=== PATIENT | female | born 1940 | race American Indian/Alaskan Native ===

== ENCOUNTER 2017-06-10 15:48 | Outpatient (CLI) | payer MEDICAID, MEDICARE ==
--- NOTE | 2017-06-14 09:09 | PET Report ---
PET/CT:06/10/17 15:48:00 CLINICAL: Nasopharyngeal cancer RADIOPHARMACEUTICAL: 13.275mCi F18-FDG. COMPARISON: None. TECHNIQUE- Following intravenous injection of F-18 FDG and an approximately 60 minute uptake period, CT and PET images from the mid skull to the upper thighs were acquired with the patient in the fasted state. No contrast was administered. The CT protocol used for this PET CT study is designed for attenuation correction and anatomic localization of PET abnormalities. This commercial tire service technician CT is not desired to produce and cannot replace, [id number]-[id number]-art diagnostic CT scans with specific imaging protocols for different body parts and indications. Plasma glucose at the time of this test: 157g/dl. The standardized uptake values (SUV) are normalized to patient body weight and indicate the highest activity concentration (SUV max) in a given disease site. FINDINGS: Brain--Physiologic FDG uptake in the visualized regions of the brain. Neck--an FDG avid nasopharyngeal mass measures approximately 5.5 cm transverse dimension by 5.4 cm craniocaudal dimension by 3.9 cm in AP dimension with SUV 21.2. The mass erodes the clivus and has destroyed the body of the sphenoid bone as well as the right lesser sphenoid wing. The right pterygoid processes are eroded and mass extends into the right maxillary sinus. Mass involves the sphenoid sinus and also extends into the right cranial fossa. No jugular chain lymphadenopathy. An FDG avid left parotid mass measures 1.3 x 1.2 cm with SUV 7.9. A left supraclavicular mass measures 2.4 x 1.5 cm with SUV 5.4. The super clavicular mass produces mass effect on the left thyroid lobe. However, the thyroid appears normal. Chest--Physiologic FDG uptake in mediastinal blood pool and myocardium. Lungs--No abnormal uptake. No pulmonary nodule or mass. Pleura/pericardium--No abnormal uptake. Thoracic nodes--No abnormal uptake. Hepatobiliary--No abnormal uptake. Liver background SUV mean, as a reference for comparing FDG studies, is 4.1 . No liver mass. Spleen--No abnormal uptake. Pancreas--No abnormal uptake. Adrenal Glands--No abnormal uptake. Kidneys/Ureters/Bladder--No abnormal uptake. Abdominopelvic Nodes--No abnormal uptake. Bowel/Peritoneum/Mesentery--No abnormal uptake. Pelvic organs--No abnormal uptake. Bones/Soft Tissues--No suspicious bone lesions aside from the lytic destruction of the bones adjacent to the nasopharyngeal mass as described above. Other findings: Status post hysterectomy. IMPRESSION- 1. 5.5 cm FDG avid nasopharyngeal mass producing lytic destruction of the sphenoid bone and clivus with extension into the sphenoid sinus, right maxillary sinus and right cranial fossa.2. 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 3. No evidence of pulmonary metastasis. 4. The abdomen and pelvis are negative.
== END 2017-06-10 15:49 | disposition home or self-care (01) ==
LOC: PET 15:48
DX: C79.89 Secondary malignant neoplasm of other specified sites (principal); C11.9 Malignant neoplasm of nasopharynx, unspecified; Z90.710 Acquired absence of both cervix and uterus
CPT/HCPCS: 78815; A9552

== ENCOUNTER 2017-06-21 08:03 | Outpatient (CLI) | payer MEDICAID, MEDICARE ==
--- NOTE | 2017-06-22 15:15 | Magnetic Resonance Report ---
MRI ORBITS/FACE/NECK WITHOUT AND WITH CONTRAST: 06/21/17 08:22:00 CLINICAL: Nasopharyngeal cancer. TECHNIQUE: Sagittal, coronal and axial T1, axial T2, coronal T2 fat-sat and coronal and axial postcontrast T1 sequences on a 1.5 [place] magnet. 15.0 cc of Multihance was injected intravenously for the contrast exam and consent was obtained prior to the administration of contrast. FINDINGS: The quality of the examination is degraded by patient motion on most of the sequences. An irregular enhancing mass of the nasopharynx measures approximately 7.5 cm craniocaudal dimension 7.4 cm AP dimension of 5.3 cm transverse dimension. The mass fills the nasopharynx and extends into both right and left nasal passages. The mass partially encases and constricts the right internal carotid artery. The optic nerves appear to be intact the optic tracts and the optic chiasm appear to be involved with tumor. The pituitary is small and unremarkable. The mass extends into the sphenoid sinuses and the mass erodes the right pterygoid plates. The nasopharynx and the upper portion of the oropharynx are narrowed by the mass. No lymphadenopathy. Fluid fills the right mastoid air cells. The left mastoid air cells are normal. The cervical spine is normal except for some degenerative change with anterior osteophytes. Right maxillary and right ethmoid sinusitis with mucoperiosteal thickening. The rest of the sinuses are clear. IMPRESSION: A fair quality examination degraded by patient motion. A 7.5 x 7.4 x 5.3 cm nasopharyngeal mass with involvement of the optic tracts, optic chiasm and right internal carotid artery.
== END 2017-06-21 08:04 | disposition home or self-care (01) ==
LOC: MRI 08:03
PROVIDERS: ATTEND Internal Medicine Hematology & Oncology
DX: C11.9 Malignant neoplasm of nasopharynx, unspecified (principal); J32.2 Chronic ethmoidal sinusitis; M47.892 Other spondylosis, cervical region
CPT/HCPCS: 70543; A9577

== ENCOUNTER 2017-06-23 10:08 | Outpatient (CLI) | payer MEDICARE, MEDICAID ==
--- NOTE | 2017-06-23 12:17 | Magnetic Resonance Report ---
MRI BRAIN WITHOUT AND WITH CONTRAST: 06/23/17 10:21:00 CLINICAL: Malignant neoplasm of the nasopharynx. COMPARISON: MRI ORBIT/FACE/NECK 06/21/[address] 06/10/17 TECHNIQUE: Axial diffusion, T1, FLAIR, gradient echo T2*, and coronal and axial T2 and sagittal T1 plus coronal and axial postcontrast T1 sequences on a 1.5 [place] magnet. 15.0 cc of Multihance was injected intravenously for the contrast portion of the exam. Consent was obtained prior to the administration of contrast. FINDINGS: An irregular enhancing mass fills the nasopharynx and extends into the sphenoid sinuses and both left and right nasal passages. It measures approximately 7.5 x 5.3 x 7.4 cm. The mass erodes the right pterygoid plates and extends into the right adjunct psychology instructor space. The right ICA is displaced posteriorly and laterally by the mass and appears to be markedly narrowed. The mass does not involve the optic chiasm or the optic tracts as suggested by a technically less satisfactory comparison MRI of the orbits and face. The mass does appear to produce mass effect on the right temporal lobe. The ventricles and sulci are normal. No brain lesion is identified. No restricted diffusion. No hemorrhage, edema or extra-axial collection. Normal pituitary and optic chiasm. The brainstem and cerebellum are normal. Intact vascular flow voids. The orbits, sinuses and soft tissues are normal. Normal calvarium and skull base. IMPRESSION: 1. No evidence of brain metastasis. 2. A 7.5 cm nasopharyngeal tumor which extends into the right adjunct psychology instructor space and erodes the right pterygoid plates. Suspect involvement of the right trigeminal nerve. 3. 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
== END 2017-06-23 10:09 | disposition home or self-care (01) ==
LOC: MRI 10:08
PROVIDERS: ATTEND Internal Medicine Hematology & Oncology
DX: C11.9 Malignant neoplasm of nasopharynx, unspecified (principal); I65.21 Occlusion and stenosis of right carotid artery
CPT/HCPCS: 70553; A9577